=== PATIENT | female | born 1960 | race Caucasian/White ===

== ENCOUNTER → 2018-04-19 | Outpatient (CLI) | payer OTHER ==
--- NOTE | 2018-04-19 14:55 | MR ---
EXAMINATION TYPE: MR brain wo/w con, MR angio head wo con DATE OF EXAM: 04/19/2018 10:12 AM COMPARISON: NONE HISTORY: Tinnitus, MS CONTRAST: Patient received 7 mL intravenous Gadavist gadolinium contrast. Multiplanar and multispin-echo imaging of the brain was performed . Pre and post contrast enhanced i mages are obtained. The ventricles, basal cisterns and sulci overlying the cerebral convexities are mildly enlarged. There is evidence of mild periventricular white matter ischemic demyelination. Remote deep white matter insults are also noted. Myelination not excluded. No acute edema is seen on diffusion weighted imaging. There is no evidence for midline shift or mass effect. Acute intracranial hemorrhage or extra-axial collection is not evident. No enhancing lesions are seen. Fluid within the left-sided mastoid air cells may reflect mastoiditis. IMPRESSION: Age-related atrophic and chronic small vessel ischemic change. No acute intracranial process at this time. Demyelination not excluded. No enhancing lesions are seen. EXAMINATION TYPE: MR brain wo/w con, MR angio head wo con DATE OF EXAM: 04/19/2018 10:12 AM COMPARISON: NONE HISTORY: Tinnitus, MS Three-dimensional [id number] intracranial MRA was performed with multiple intensity projection im ages submitted and source data reviewed at the workstation. The vertebrobasilar system as well as intracranial portions of the internal carotid arteries and thei r major tributaries are patent. I do not see evidence for sizable aneurysm or vascular malformation. IMPRESSION: Normal study.
== END | disposition home or self-care (01) ==
LOC: RADMRIMAIN 08:58
PROVIDERS: ATTEND Psychiatry & Neurology Neurology
DX: G31.1 Senile degeneration of brain, not elsewhere classified (principal); I67.82 Cerebral ischemia; H93.19 Tinnitus, unspecified ear
CPT/HCPCS: 70544; 70553; A9581

== ENCOUNTER → 2018-09-15 | Outpatient (CLI) | payer OTHER ==
[2018-09-15 16:29] LABS: Total Protein,CSF 68 mg/dL (12-60)
[2018-09-15 16:34] LABS: Appearance,CSF Clear; CSF Tube Number 4; CSF Tube Volume 3.75; Nucleated Cells, CSF 0 u/L (0-5); Red Blood Cell,CSF 0 u/L (0-10)
[2018-09-17 14:15] LABS: IgG/Albumin Index (CSF) 0.49 (0.00 - 0.77); Immunoglobulin G 864 mg/dL (700 - 1600)
== END ==
LOC: LABWHC1 13:08
PROVIDERS: ATTEND Physician Assistant
DX: R90.82 White matter disease, unspecified (principal); R51 Headache
CPT/HCPCS: 36415; 82040; 82042; 82784; 83873; 83916; 84157; 87476; 89050

== ENCOUNTER → 2022-03-06 | Outpatient (CLI) | payer MEDICARE, OTHER ==
--- NOTE | 2022-03-06 10:38 | XR ---
EXAMINATION TYPE: XR KUB DATE OF EXAM: 03/06/2022 COMPARISON: NONE HISTORY: Renal calculus with pain and hematuria TECHNIQUE: One view abdominal series FINDINGS: The osseous structures are intact. The bowel gas pattern is nonspecific. Postsurgical change right s houlder and severe arthropathy left hip. 2 mm calcification lower pole left kidney. IMPRESSION: 1. 2 mm left renal calculus. 2. Nonspecific abdomen.
== END | disposition home or self-care (01) ==
LOC: RADXRMAIN 09:38
PROVIDERS: ATTEND Family Medicine
DX: N20.0 Calculus of kidney (principal)
CPT/HCPCS: 74018